=== PATIENT | female | born 1955 | race Caucasian/White ===

== ENCOUNTER 2018-11-30 13:55 | Emergency (ER) | payer OTHER ==
--- NOTE | 2018-11-30 16:17 | RAD REPORT ---
EXAM DESCRIPTION: US - Extremity Venous Uni Ltd - 11/30/2018 3:57 pm CLINICAL HISTORY: Left leg pain swelling COMPARISON: None. TECHNIQUE: Real-time sonographic evaluation of the right lower extremity deep venous systems was per formed. FINDINGS: Echogenic thrombus is present in the greater saphenous vein. This extends from the sapheno us femoral junction into the mid calf level. Normal compressibility, flow augmentation, phasic flow and spontaneous flow are identified in the rig ht lower extremity common femoral, superficial femoral, popliteal and posterior tibial veins. No intr aluminal filling defects seen. IMPRESSION: Extensive superficial thrombus throughout the greater saphenous vein. No extension of thrombus into the deep venous system.
[2018-11-30 16:24] LABS: Absolute Lymphocytes (CBC) 1.2 K/uL (0.7-4.9); Absolute Monocytes 0.9 K/uL (0.1-1.3); Absolute Neutrophil 4.8 K/uL (1.8-8.0); Basophils % 0.5 % (0-1.3); Eosinophils % 2.6 % (0-4.4); Hematocrit 39.7 % (36.0-45.0); MPV 10.1 fL (7.6-11.3); Monocytes % 12.8 % (3.3-12.3); RBC Red Blood Cell Count 4.24 M/uL (3.86-4.86)
[2018-11-30 16:27] LABS: Protime INR 1.08
[2018-11-30 16:35] LABS: BUN Blood Urea Nitrogen 10 mg/dL (7-18); Bicarbonate 27 mmol/L (21-32); Glucose Level 94 mg/dL (74-106); Potassium 4.1 mmol/L (3.5-5.1); Sodium Level 139 mmol/L (136-145)
--- NOTE | 2018-11-30 16:39 | EDPHYS ---
Physician Documentation [facility] Name: Michelle Salmeron Age: 63 yrs Sex: Female : 1955 Arrival Date: 11/30/2018 Time: 13:57 Bed 19 Private MD: ED Physician Regis Barajas HPI: 11/30 15:49 This 63 yrs old Female presents to ER via Ambulatory with complaints of Leg jr8 Pain. 15:49 The patient presents with pain, tenderness. The complaints affect the medial aspect of jr8 left thigh and medial aspect of left calf. Onset: The symptoms/episode began/occurred gradually, 2 day(s) ago. Modifying factors: The symptoms are alleviated by nothing. the symptoms are aggravated by nothing. Associated signs and symptoms: The patient has no apparent associated signs or symptoms. Severity of symptoms: At their worst the symptoms were mild, in the emergency department the symptoms are unchanged. The patient has not experienced similar symptoms in the past. The patient has not recently seen a physician. Patient stated that she had cholecystectomy one week ago. Had been doing fine. 2 days ago noticed redness to left medial thigh and lower leg with tenderness. Three areas of circular redness with tenderness present. Denies any other symptoms . Historical: - Allergies: 14:23 No Known Allergies; iw - Home Meds: 14:23 Humira subcutaneous subcutaneous every 2 weeks [Active]; aspirin 81 mg Oral TbEC 1 tab iw once daily [Active]; - PMHx: 14:23 Crohn's; iw - PSHx: 14:23 Cholecystectomy; eyelid; iw - Immunization history:: Adult Immunizations up to date. - Social history:: Smoking status: Patient/guardian denies using tobacco. - Ebola Screening: : Patient negative for fever greater than or equal to 101.5 degrees Fahrenheit, and additional compatible Ebola Virus Disease symptoms Patient denies exposure to infectious person Patient denies travel to an Ebola-affected area in the 21 days before illness onset No symptoms or risks identified at this time. ROS: 15:49 Eyes: Negative for injury, pain, redness, and discharge, ENT: Negative for injury, jr8 pain, and discharge, Neck: Negative for injury, pain, and swelling, Cardiovascular: Negative for chest pain, palpitations, and edema, Respiratory: Negative for shortness of breath, cough, wheezing, and pleuritic chest pain, Abdomen/GI: Negative for abdominal pain, nausea, vomiting, diarrhea, and constipation, Back: Negative for injury and pain, Neuro: Negative for headache, weakness, numbness, tingling, and seizure. 15:49 MS/extremity: Positive for erythema, pain, tenderness, warmth, of the left leg. Exam: 15:49 Eyes: Pupils equal round and reactive to light, extra-ocular motions intact. Lids and jr8 lashes normal. Conjunctiva and sclera are non-icteric and not injected. Cornea within normal limits. Periorbital areas with no swelling, redness, or edema. ENT: Nares patent. No nasal discharge, no septal abnormalities noted. Tympanic membranes are normal and external auditory canals are clear. Oropharynx with no redness, swelling, or masses, exudates, or evidence of obstruction, uvula midline. Mucous membranes moist. Neck: Trachea midline, no thyromegaly or masses palpated, and no cervical lymphadenopathy. Supple, full range of motion without nuchal rigidity, or vertebral point tenderness. No Meningismus. Cardiovascular: Regular rate and rhythm with a normal S1 and S2. No gallops, murmurs, or rubs. Normal PMI, no JVD. No pulse deficits. Respiratory: Lungs have equal breath sounds bilaterally, clear to auscultation and percussion. No rales, rhonchi or wheezes noted. No increased work of breathing, no retractions or nasal flaring. Abdomen/GI: Soft, non-tender, with normal bowel sounds. No distension or tympany. No guarding or rebound. No evidence of tenderness throughout. Back: No spinal tenderness. No costovertebral tenderness. Full range of motion. Skin: Warm, dry with normal turgor. Normal color with no rashes, no lesions, and no evidence of cellulitis. Neuro: Awake and alert, GCS 15, oriented to person, place, time, and situation. Cranial nerves II-XII grossly intact. Motor strength 5/5 in all extremities. Sensory grossly intact. Cerebellar exam normal. Normal gait. 15:49 Musculoskeletal/extremity: Extremities: grossly normal except: noted in the left leg: Patient has 3 circular red lesions to medial left leg with tenderness to palpation. , ROM: intact in all extremities, Circulation is intact in all extremities. Sensation intact. DVT Exam: pain, of the left leg, tenderness, of the left leg, erythema, of the left leg, increased warmth, of the left leg. Vital Signs: 14:22 BP 138 / 81; Pulse 98; Resp 16; Temp 98.8; Pulse Ox 100% on R/A; Weight 95.25 kg; iw Height 5 ft. 9 in. (175.26 cm); Pain 3/10; 15:00 BP 121 / 75; Pulse 88; Resp 18; Pulse Ox 99% on R/A; em 16:00 BP 132 / 75; Pulse 87; Resp 18; Pulse Ox 99% on R/A; em 14:22 Body Mass Index 31.01 (95.25 kg, 175.26 cm) iw MDM: 14:49 Patient medically screened. jr8 15:49 Data reviewed: vital signs, nurses notes. jr8 16:37 Data reviewed: lab test result(s), and as a result, I will discharge patient. Data jr8 interpreted: Pulse oximetry: on room air is 99 %. Interpretation: normal. Counseling: I had a detailed discussion with the patient and/or guardian regarding: the historical points, exam findings, and any diagnostic results supporting the discharge/admit diagnosis, lab results, the need for outpatient follow up, a family practitioner, to return to the emergency department if symptoms worsen or persist or if there are any questions or concerns that arise at home. 11/30 15:56 Order name: CBC with Diff; Complete Time: 16:38 8 11/30 15:56 Order name: Basic Metabolic Panel; Complete Time: 16:38 8 11/30 14:57 Order name: Extremity Venous Unilateral Ltd; Complete Time: 16:21 8 11/30 15:56 Order name: Protime (+inr); Complete Time: 16:38 8 11/30 15:56 Order name: Ptt, Activated; Complete Time: 16:38 8 Administered Medications: No medications were administered Disposition: 11/30/18 16:38 Discharged to Home. Impression: Phlebitis and thrombophlebitis of superficial vessels of left lower extremity. - Condition is Stable. - Discharge Instructions: Phlebitis. - Prescriptions for Xarelto 20 mg Oral tablet - take 1 tablet by ORAL route once daily; 30 tablet. - Medication Reconciliation Form, Thank You Letter, Antibiotic Education, Prescription Opioid Use form. - Follow up: Private Physician; When: 2 - 3 days; Reason: Recheck today's complaints, Continuance of care, Re-evaluation by your physician. - Problem is new. - Symptoms have improved. Addendum: 12/02/2018 08:09 Co-signature as Attending Physician, Regis Barajas MD I agree with the assessment and k dr plan of care. Signatures: Dispatcher [employer] [facility] Regis Barajas MD MD [facility] Andre Underwood, COMPONENT PREP OPERATOR COMPONENT PREP OPERATOR em Asha Escoto, JIAN RN iw Chivo Sorto PA PA jr8 Corrections: (The following items were deleted from the chart) 11/30 16:35 15:58 Chest For PE Angio+CT.RAD.BRZ ordered. [facility] 17:04 16:38 11/30/2018 16:38 Discharged to Home. Impression: Phlebitis and thrombophlebitis em of superficial vessels of left lower extremity. Condition is Stable. Forms are Medication Reconciliation Form, Thank You Letter, Antibiotic Education, Prescription Opioid Use. Follow up: Private Physician; When: 2 - 3 days; Reason: Recheck today's complaints, Continuance of care, Re-evaluation by your physician. Problem is new. Symptoms have improved. jr8
--- NOTE | 2018-11-30 16:39 | ER ---
Nurse's Notes [facility] Name: Michelle Salmeron Age: 63 yrs Sex: Female : 1955 Arrival Date: 11/30/2018 Time: 13:57 Bed 19 Private MD: Diagnosis: Phlebitis and thrombophlebitis of superficial vessels of left lower extremity Presentation: 11/30 14:19 Presenting complaint: Patient states: had gall bladder surgery a week ago at [facility], iw started having pian to left leg 4-5 days ago, has 3 areas of redness on left leg, one on left inner calf area, 2 on upper thigh area, can feel a lump inside. Transition of care: patient was not received from another setting of care. Onset of symptoms was November 26, 2018. Risk Assessment: Do you want to hurt yourself or someone else? Patient reports no desire to harm self or others. Initial Sepsis Screen: Does the patient meet any 2 criteria? No. Patient's initial sepsis screen is negative. Does the patient have a suspected source of infection? No. Patient's initial sepsis screen is negative. Care prior to arrival: None. 14:19 Method Of Arrival: Ambulatory iw 14:19 Acuity: PETER 3 iw Historical: - Allergies: 14:23 No Known Allergies; iw - Home Meds: 14:23 Humira subcutaneous subcutaneous every 2 weeks [Active]; aspirin 81 mg Oral TbEC 1 tab iw once daily [Active]; - PMHx: 14:23 Crohn's; iw - PSHx: 14:23 Cholecystectomy; eyelid; iw - Immunization history:: Adult Immunizations up to date. - Social history:: Smoking status: Patient/guardian denies using tobacco. - Ebola Screening: : Patient negative for fever greater than or equal to 101.5 degrees Fahrenheit, and additional compatible Ebola Virus Disease symptoms Patient denies exposure to infectious person Patient denies travel to an Ebola-affected area in the 21 days before illness onset No symptoms or risks identified at this time. Screenin:27 Abuse screen: Denies threats or abuse. Nutritional screening: No deficits noted. em Tuberculosis screening: No symptoms or risk factors identified. Fall Risk None identified. Assessment: 14:52 General: Appears in no apparent distress. comfortable, Behavior is calm, cooperative, em Denies fever. Pain: Complains of pain in medial aspect of left thigh and medial aspect of left calf Pain currently is 3 out of 10 on a pain scale. Neuro: Level of Consciousness is awake, alert, obeys commands, Oriented to person, place, time, situation. Cardiovascular: Capillary refill < 3 seconds Patient's skin is warm and dry. Respiratory: Airway is patent Respiratory effort is even, unlabored, Respiratory pattern is regular, symmetrical. GI: Patient currently denies nausea, vomiting. Derm: Rash noted that is red, on medial aspect of left thigh and medial aspect of left calf. Musculoskeletal: Capillary refill < 3 seconds, Range of motion: intact in all extremities. 15:00 Reassessment: Patient appears in no apparent distress at this time. I agree with above iw assessment by Andre Underwood LVN. 16:12 Reassessment: Patient appears in no apparent distress at this time. Patient and/or em family updated on plan of care and expected duration. Pain level reassessed. Patient is alert, oriented x 3, equal unlabored respirations, skin warm/dry/pink. 17:02 Reassessment: Patient appears in no apparent distress at this time. Patient and/or em family updated on plan of care and expected duration. Pain level reassessed. Patient is alert, oriented x 3, equal unlabored respirations, skin warm/dry/pink. Vital Signs: 14:22 BP 138 / 81; Pulse 98; Resp 16; Temp 98.8; Pulse Ox 100% on R/A; Weight 95.25 kg; iw Height 5 ft. 9 in. (175.26 cm); Pain 3/10; 15:00 BP 121 / 75; Pulse 88; Resp 18; Pulse Ox 99% on R/A; em 16:00 BP 132 / 75; Pulse 87; Resp 18; Pulse Ox 99% on R/A; em 14:22 Body Mass Index 31.01 (95.25 kg, 175.26 cm) iw ED Course: 13:57 Patient arrived in ED. rg4 14:08 Andre Underwood LVN is Primary Nurse. em 14:21 Triage completed. iw 14:22 Arm band placed on. iw 14:27 Patient has correct armband on for positive identification. Placed in gown. Bed in low em position. Call light in reach. Pulse ox on. NIBP on. 14:49 Chivo Sorto PA is PHCP. jr8 14:49 Regis Barajas MD is Attending Physician. jr8 15:56 Ultrasound completed. Patient tolerated well. Notified TELEPHONE SERVICES SALES REPRESENTATIVE/GHULAM prieto. sg3 15:58 US Extremity Venous Unilateral Ltd In Process Unspecified. EDMS 16:07 Initial lab(s) drawn, by me, sent to lab. Inserted saline lock: 20 gauge in left dh3 antecubital area, using aseptic technique. Blood collected. 16:14 Radiology exam delayed due to lab results not completed at this time. (BUN/Creatinine). az 17:01 No provider procedures requiring assistance completed. IV discontinued, intact, em bleeding controlled, No redness/swelling at site. Pressure dressing applied. Administered Medications: No medications were administered Outcome: 16:38 Discharge ordered by MD. jr8 17:01 Discharged to home ambulatory, with family. em 17:01 Condition: good 17:01 Discharge instructions given to patient, family, Instructed on discharge instructions, follow up and referral plans. medication usage, Demonstrated understanding of instructions, follow-up care, medications, Prescriptions given X 1. 17:04 Patient left the ED. em Signatures: Dispatcher [employer] [facility] Andre Underwood, ELEMENTARY SCHOOL SCIENCE TEACHER ELEMENTARY SCHOOL SCIENCE TEACHER em Asha Escoto, JIAN RN iw Chivo Sorto PA PA jr8 Sharon Milian 4 Shantel Zavalanna [facility] Ida Desai 3 Lolis Chairez pr
== END 2018-11-30 17:04 | disposition home or self-care (01) ==
LOC: ER 13:55
DX: I80.02 Phlebitis and thrombophlebitis of superficial vessels of left lower extremity (principal); K50.90 Crohn's disease, unspecified, without complications; Z79.82 Long term (current) use of aspirin
CPT/HCPCS: 36415; 80048; 85025; 85610; 85730; 93971; 99284